=== PATIENT | male | born 1985 | race Caucasian/White ===

== ENCOUNTER 2025-03-31 09:40 | Emergency (ER) | payer OTHER ==
[~2025-03-31] VITALS: Ht 175.3 cm; Wt 99.0 kg
[2025-03-31 09:57] VITALS: TEMP 36.9; O2SAT 100
[2025-03-31] MEDS: KETOROLAC 30MG/ML VIAL IM ONE (10:59)
[2025-03-31] MEDS: METHOCARBAMOL 500MG TABLET PO ONE (10:59)
[2025-03-31] MEDS ORDERED: IBUP-2029 MT (12:51)
[2025-03-31] MEDS ORDERED: LIDO700A30 TP (12:51)
[2025-03-31] MEDS ORDERED: METH-653 MT (12:51)
[2025-03-31 13:15] VITALS: BP 135/75; PULSE 85; RESP 16; O2SAT 98
== END 2025-03-31 13:17 | disposition home or self-care (01) ==
LOC: ER 10:30
DX: S29.012A Strain of muscle and tendon of back wall of thorax, initial encounter (principal); S33.5XXA Sprain of ligaments of lumbar spine, initial encounter; S39.012A Strain of muscle, fascia and tendon of lower back, initial encounter; X58.XXXA Exposure to other specified factors, initial encounter; Y93.89 Activity, other specified; Y92.89 Other specified places as the place of occurrence of the external cause; Y99.8 Other external cause status
CPT/HCPCS: 99285; 72128; 96372; J1885